=== PATIENT | female | born 1965 | race Caucasian/White ===

== ENCOUNTER 2018-02-20 15:34 | Emergency (ER) | payer SELFPAY ==
[~2018-02-20] VITALS: Ht 160 cm; Wt 70.3 kg
[2018-02-20 16:50] VITALS: BP 126/88
--- NOTE | 2018-02-20 16:54 | NUR ---
Re-eval by Dr Voss.Patient discharged to home in stable condition. Written and verbal after care instructions given. Patient verbalizes understanding of instruction.
== END 2018-02-20 16:56 | disposition home or self-care (01) ==
LOC: ER 15:36
DX: M54.2 Cervicalgia (principal); M54.5 Low back pain
CPT/HCPCS: 72070-TC; 72100-TC; 72125-TC; A4606; Z7610